=== PATIENT | male | born 1985 | race Caucasian/White ===

== ENCOUNTER 2018-08-15 13:17 | Inpatient (IN) | payer OTHER ==
[~2018-08-15] VITALS: Ht 185.4 cm; Wt 95.3 kg
--- NOTE | ~2018-08-15 | O ---
[facility] [place] [address] OPERATIVE REPORT Name: HAILY WHATLEY Room #: 463-P ADM IN M.R.#: [id number] Admission: 08/15/18 ������������������ Attend Phys: Toni Soliman Discharge: ������������������ Date of : 83 Report #: [id number] THIS REPORT FOR: //name// CC: ZBIGNIEW physician/PCP Toni Soliman DATE OF SERVICE: 08/23/2018 PREOPERATIVE DIAGNOSES: Gallstone pancreatitis, acute cholecystitis. POSTOPERATIVE DIAGNOSES: Gallstone pancreatitis, acute cholecystitis. OPERATION: Laparoscopic cholecystectomy with intraoperative cholangiogram. SURGEON: Carlitos Cunningham MD ANESTHESIA: General. ESTIMATED BLOOD LOSS: 100 mL. SPECIMEN: Gallbladder. DRAIN: 10-Malian round. INTRAOPERATIVE FINDINGS: Severe cholecystitis, normal cholangiogram. DESCRIPTION OF PROCEDURE: After informed consent was obtained, the patient was brought to the operating room and placed supine. SCDs were placed and working, preoperative antibiotics were administered, general anesthesia was induced. The abdomen was prepped and draped in the usual sterile fashion. A 10-mm incision was made above the umbilicus. Fascia was incised and a trocar was placed. Pneumoperitoneum was established. Three right upper quadrant 5-mm ports were placed. Gallbladder was grasped at the fundus and retracted cephalad. Infundibulum was grasped and retracted laterally. There was severe cholecystitis. I was able to dissect out the cystic artery and clip and ligate it. I dissected out the cystic duct. A ductotomy was made. Cholangiogram catheter was inserted. Cholangiogram was then performed. This demonstrated the cystic duct, common bile duct with a stent in it, common hepatic duct, bifurcation of the hepatics. There were no filling defects. Cholangiogram catheter was then removed. The cystic duct was clipped and ligated leaving a PDS Endoloop on the remaining duct. Gallbladder was then removed from the liver bed with electrocautery. It was placed into an Endopouch and removed. Fascia was then closed with a [id number] 0 Vicryl. Skin was closed with 4-0 Monocryl. Prior to closure, a 10-Malian drain was placed through the right upper quadrant incision into the gallbladder fossa. [facility] [address] [place] [address] OPERATIVE REPORT Name: HAILY WHATLEY Room #: 463-P [facility] IN M.R.#: [id number] Admission: 08/15/18 ������������������ Attend Phys: Toni Soliman Discharge: ������������������ Date of : 83 Report #: [id number] COMPLICATIONS: None. DISPOSITION: The patient was taken to recovery in satisfactory condition. ��������������������������������������������� ���������������������������������������� By: ��������������������������������������������� 0952 [address] Carlitos Cunningham MD /brennon
[2018-08-15 13:17] VITALS: BP 124/70
[2018-08-15 13:38] LABS: URINE BILIRUBIN NEGATIVE (Negative); URINE BLOOD NEGATIVE (Negative); URINE CLARITY CLEAR; URINE COLOR YELLOW; URINE GLUCOSE-RANDOM* NEGATIVE (Negative); URINE KETONES NEGATIVE (Negative); URINE LEUKOCYTES-REFLEX NEGATIVE (Negative); URINE NITRITE-REFLEX NEGATIVE (Negative); URINE PROTEIN (DIPSTICK) NEGATIVE (Negative); URINE SPECIFIC GRAVITY >= 1.030 (1.005-1.035); URINE UROBILINOGEN 0.2 E.U./dl (0.2-1.0)
[2018-08-15 14:19] LABS: HEMATOCRIT 41.3 % (42.0-52.0); HEMOGLOBIN 13.8 gm/dL (14.0-18.0); MCH 29.9 pg (26.0-34.0); MCHC 33.3 g/dL (28.0-37.0); MCV 89.8 fL (80.0-100.0); PLATELET COUNT 409 thou/uL (150-400); RDW 13.4 % (10.5-14.5); WBC 24.6 thou/uL (4.0-11.0)
[2018-08-15 14:30] LABS: CALCIUM 8.7 mg/dL (8.5-10.1); CREATININE 0.8 mg/dL (0.7-1.3); POTASSIUM 4.3 mmol/L (3.5-5.1)
[2018-08-15 14:34] LABS: ALBUMIN 2.6 g/dL (3.4-5.0); TOTAL BILIRUBIN 0.6 mg/dL (<0.1-1.0); TOTAL PROTEIN 7.8 g/dL (6.4-8.2)
[2018-08-15 14:45] LABS: ABSOLUTE NEUTROPHILS 22.4 thou/uL (1.4-8.2)
[2018-08-15 16:26] LABS: CHOLESTEROL 68 mg/dL (<200); HDL CHOLESTEROL 24 mg/dL (>40); LDL CHOLESTEROL 29 mg/dL (<100); SERUM ASSESSMENT Clear; TC:HDL 2.8 Ratio (Not establshd); TRIGLYCERIDE 76 mg/dL (<150); VLDL 15 mg/dL (<40)
[2018-08-15 16:52] VITALS: BP 119/63
[2018-08-15 17:11] VITALS: BP 120/70
--- NOTE | 2018-08-15 17:11 | NUR ---
REPORT CALLED FROM ER NURSE
[2018-08-15 17:42] VITALS: BP 118/62
[2018-08-15 19:30] VITALS: BP 112/62
[2018-08-16 04:11] VITALS: BP 122/56
--- NOTE | 2018-08-16 05:39 | NUR ---
Assumed care at 1845. Pt resting in bed. AOX4. VSS. Up at kusum. Skin in intact. Lungs clear. He had a slight elevation in temp 100.1 gave tylenol onetime. Pt also complained about abdmn pain gave him morphine twice today. Radiology called for missing coagulation panel. Informed CUSTOMER SERVICE AND SALES CONSULTANT who authorized the orders. Pt has been NPO since midnight for scheduled parecentesis. IV right AC w/LR @125. No identified needs at the moment. Will continue to monitor.
[2018-08-16 06:35] LABS: HEMATOCRIT 37.4 % (42.0-52.0); HEMOGLOBIN 12.3 gm/dL (14.0-18.0); MCH 29.8 pg (26.0-34.0); MCV 90.4 fL (80.0-100.0); RBC 4.14 mil/uL (4.50-6.00); RDW 13.3 % (10.5-14.5); WBC 19.4 thou/uL (4.0-11.0)
[2018-08-16 06:52] LABS: CALCIUM 8.6 mg/dL (8.5-10.1); CREATININE 0.9 mg/dL (0.7-1.3); POTASSIUM 4.9 mmol/L (3.5-5.1)
[2018-08-16 07:25] VITALS: BP 100/58
[2018-08-16 07:55] LABS: APTT 31.4 Seconds (24.5-32.8); INR 1.2; PROTIME 12.6 Seconds (9.3-11.4)
--- NOTE | 2018-08-16 08:15 | NUR ---
PT LYING IN BED SLEEPING, DENIES ANY PAIN AT THIS TIME. PT SKIN PALE. PT UP AD MAURICE AT THIS TIME. PT ON ROOM AIR.
--- NOTE | 2018-08-16 08:30 | NUR ---
PT LEAVING AT THIS TIME FOR US.
[2018-08-16 12:17] LABS: BF NUCLEATED CELLS 2394; BF RBC 2315
[2018-08-16 12:19] LABS: CLARITY CLOUDY; COLOR YELLOW; TOTAL VOLUME 55 mL
--- NOTE | 2018-08-16 12:38 | NUR ---
PT CAR REPAIRER APPRENTICE OF MORPHINE STARTED AT THIS TIME. PT STATED PAIN IS 6 ON 1-10 SCALE TO LOWER ABD. PT GETTING READY TO GET PICC LINE PLACED AT THIS TIME. PT SIG. OTHER IS AT BEDSIDE.
--- NOTE | 2018-08-16 12:38 | NUR ---
Recommend tpn at final rate 100ml/hr and add 250ml 20% lipids MWF.
--- NOTE | 2018-08-16 13:40 | NUR ---
GIVING MORPHINE 4MG IV X1 FOR PAIN CONTROL, PT PAIN LEVEL IS 6 ON 1-10 SCALE.
--- NOTE | 2018-08-16 13:43 | NUR ---
PICC LINE NURSE HERE FOR PLACEMENT.
[2018-08-16 14:09] LABS: BF MACROPHAGE 30; BF NEUTROPHILS 47; SOURCE ABDOMINAL
[2018-08-16 14:10] LABS: SOURCE ABDOMINAL
--- NOTE | 2018-08-16 15:24 | NUR ---
VASCULAR ACCESS TEAM ORDER VERIFIED AND CONSENT OBTAINED AT BEDSIDE. TIMEOUT COMPLETED AT BEDSIDE WITH RN. DL PICC PLACED TO RIGHT BASILIC VEIN WITH U.S GUIDANCE PER [facility] P&P. VEIN CANNULATED WITH ONE ATTEMPT. GUIDEWIRE ADVANCED EASILY. VEIN DILATED AND GUIDEWIRE REMOVED INTACT. DL PICC TRIMMED TO 38CM WITH 1CM EXTERNAL. BOTH LUMENS FLUSH AND DRAW EASILY. PLACEMENT VERIFIED BY CXR. LINE RELEASED FOR IMMEDIATE USE TO RN. PATIENT TOLERATED PROCEDURE WELL.
[2018-08-16 15:48] VITALS: BP 108/61
--- NOTE | 2018-08-16 16:58 | NUR ---
Cm attempted x 2 to visit with the pt. Pt out of room for testing several times today. [employer] referral in progress as the pt does not have health insurance. The pt is on TPN and had a picc line placed. Workup in progress for recurrent pancreatitis. Will reattempt to visit with the pt tomorrow.
[2018-08-16 23:24] VITALS: BP 98/49
--- NOTE | 2018-08-17 04:34 | NUR ---
ASSUMED CARE OF PT AT 1900HRS. PT AOX4 AND LETS NEEDS BE KNOWN. PT IS NPO. EMBEDDED SOFTWARE ARCHITECT CONTINUED AND TPN STARTED THIS SHIFT. PT WAS ABLE TO GET COMFORTABLE AND GET SOME SLEEP THIS SHIFT. NO OTHER S/S OF ACUTE DISTRESS. WILL CONTINUE TO MONITOR.
--- NOTE | 2018-08-17 05:16 | NUR ---
1.2 MICON FITER USED WITH TPN W/LIPIDS WHEN STARTED.
[2018-08-17 06:32] LABS: ABSOLUTE NEUTROPHILS 13.7 thou/uL (1.4-8.2); BASOPHILS 0.2 % (0.0-2.0); EOSINOPHILS 0.5 % (0.0-3.0); HEMATOCRIT 35.6 % (42.0-52.0); LYMPHOCYTES 9.4 % (24.0-44.0); MCH 30.2 pg (26.0-34.0); MCHC 33.6 g/dL (28.0-37.0); MCV 89.9 fL (80.0-100.0); MONOCYTES 6.3 % (1.0-8.0); PLATELET COUNT 388 thou/uL (150-400); POLYS 83.6 % (36.0-66.0); RBC 3.96 mil/uL (4.50-6.00); RDW 13.2 % (10.5-14.5); WBC 16.4 thou/uL (4.0-11.0)
[2018-08-17 06:49] LABS: ALBUMIN 2.1 g/dL (3.4-5.0); CALCIUM 7.9 mg/dL (8.5-10.1); CREATININE 0.8 mg/dL (0.7-1.3); PHOSPHORUS 3.4 mg/dL (2.5-4.9); POTASSIUM 4.1 mmol/L (3.5-5.1); TOTAL BILIRUBIN 0.5 mg/dL (<0.1-1.0); TOTAL PROTEIN 6.8 g/dL (6.4-8.2)
[2018-08-17 08:41] VITALS: BP 103/56
--- NOTE | 2018-08-17 13:22 | NUR ---
PT ADMITTED RELATED TO PANCREATITIS. CM REVIEWED CHART AND SPOKE WITH CARE TEAM. CM MET WITH PT AND HIS AT BEDSIDE THIS DAY. PT INDICATED THEY LIVE IN A CONDO WITH 3 STEPS TO ENTER AND A FULL FLIGHT OF STEPS INSIDE. PT INDICATED HE HAD BEEN INDEPENENT WITH GAIT AND ADLS HVAC LEAD. PT INDICATED THAT HE IS UNSERTAIN TO WHAT HIS NEEDS/PLANS WILL BE UPON DC AT THIS TIME. VALERIE MET [facility] PT AND COMPLETED AN APPLICATION FOR MEDICAID. PT WAS GIVEN A [employer] PACKET FOR FOLLOW UP CARES UPON DC. CM TO FOLLOW INDICATED WITH DC PLANNING.
--- NOTE | 2018-08-17 14:01 | NUR ---
TOWARDS POC PT A/O X4, VSS, AFEBRILE, PAIN MANAGED BY OPTICAL GLASS SAWYER PUMP. TOLERATING WELL. NO EPISODES ON NV. WILL CONTINUE TO MONITOR.
[2018-08-17 15:14] VITALS: BP 99/60
--- NOTE | 2018-08-17 16:06 | HC ---
[facility] [address] [address] CONSULTATION Name: HAILY WHATLEY Room #: 463-P ADM IN M.R.#: [id number] Admission: 08/15/18 ������������������ Attend Phys: Toni Soliman Discharge: ������������������ Date of : 83 Report #: [id number] THIS REPORT FOR: //name// CC: ZBIGNIEW physician/PCP Toni Soliman MD DATE OF SERVICE: 08/16/2018 GASTROENTEROLOGY CONSULTATION The patient of Dr. Soliman. CHIEF COMPLAINT: This is a very pleasant 33-year-old male whom we are asked to evaluate for possible etiologies of left upper quadrant pain and diffuse abdominal pain and loss of appetite. The patient has also been having intermittent bouts of chest pain that occur about every 3-4 weeks and may be related to his current situation. The patient is a 33-year-old male who was seen recently in [place], [place] at [facility] for what sounds like a biliary obstruction for choledocholithiasis and possibly pancreatitis. He underwent an ERCP with biliary stent placement after stone removal last week and then, returned to [place]. He said the day after he returned, he felt well, that was this past Tuesday, but then subsequently developed increasing abdominal pain and I believe he said that he vomited a couple of times as well in the next 3 days. He has had essentially no appetite for the past week. He has lost approximately 14 pounds in that interval going from 235 pounds to 221 pounds. His height is 6 feet 1 inch. He also describes dark green loose stools since his ERCP. He states he has known he has had a fatty liver and gallstones for the past year. The patient was seen and examined and his chart was reviewed. I personally reviewed his x-rays with the interventional radiologist who found him to have a biliary stent in place, a large amount of inflammation in the retroperitoneum with what is thought to be related to pancreatitis. There are multiple fluid collections thought to be related to his pancreatitis and there is a large pancreatic pseudocyst abutting the posterior wall of the stomach. The pseudocyst has an immature wall at this time. Portion of the mid pancreas has no obvious arterial perfusion on the scan and may be necrotic. There are multiple tiny gallstones in the gallbladder and there was reportedly a choledocholith that was removed during ERCP and stent placement. There is thickening of the second and third portions of the duodenal wall, probably reactive in nature to the pancreatitis. [facility] [address] [place] [address] CONSULTATION Name: HAILY WHATLEY Room #: 463-P ADM IN M.R.#: [id number] Admission: 08/15/18 ������������������ Attend Phys: Toni Soliman Discharge: ������������������ Date of : 83 Report #: [id number] There is some free fluid around the liver. There are bilateral small pleural effusions. There is moderate atelectasis. There is mild hepatic steatosis. There is nodularity throughout the peritoneum that could be inflammatory in nature related to the large amount of inflammation from the pancreatitis versus peritoneal carcinomatosis. There are enlarged lymph nodes in the central mesentery. There is a small umbilical hernia containing omental fat. There is a left varicocele. PAST MEDICAL HISTORY: Significant only for the chest pain that occurs intermittently about every 3-4 weeks. PAST SURGICAL HISTORY: None. ALLERGIES: No known drug allergies. MEDICATIONS: Prior to admission, no medications were taking prior to admission. SOCIAL HISTORY: He does not drink alcohol. He does not smoke cigarettes. FAMILY HISTORY: Negative for colon polyps, colon cancers, Crohn's disease, and ulcerative colitis. His mother has a history of kidney stones. REVIEW OF SYSTEMS: The patient denies any dysphagia to foods or liquids. He does have some recent pill dysphagia; however, he denies any odynophagia. He does have gastroesophageal reflux intermittently, but not severely. He has no history of a hiatal hernia or peptic ulcer disease. He has the above described 14 pounds weight loss. He has had no appetite for the last week. He denies nausea and vomiting, but he did have a couple of episodes of emesis, I believe Tuesday and Tuesday and perhaps Tuesday of this week. He denies any hematemesis, hematochezia, or melena. He has had some looser stools that are dark green recently. He says his pain involves the entire abdomen, but it started in the left upper quadrant. The morphine seems to be controlling it fairly well. He denies any history of jaundice or hepatitis. He has known he has had gallstones for the last year and he is also known that he has had a fatty liver for the past year. PHYSICAL EXAMINATION: GENERAL: Reveals a well-developed, well-nourished 33-year-old white male, in no apparent distress. At the time of my examination, he is awake, alert, oriented x4 and cooperative and very pleasant to converse with. HEENT: He is normocephalic, atraumatic, and anicteric. [facility] [address] [place] [address] CONSULTATION Name: HAILY WHATLEY Room #: 463-P ADM IN M.R.#: [id number] Admission: 08/15/18 ������������������ Attend Phys: Toni Soliman Discharge: ������������������ Date of : 83 Report #: [id number] HEART: Heart rate and rhythm are regular with a normal S1 and S2. No S3, S4, or murmur are auscultated. LUNGS: Clear bilaterally. ABDOMEN: Soft, mildly distended. There are bowel sounds that are present in the lower quadrants bilaterally. There is no palpable organomegaly or mass. There is diffuse tenderness to palpation. There is no rebound or guarding. There is fullness in the epigastrium that I believe is probably the pseudocyst pushing up on his stomach. EXTREMITIES: Warm and dry. NEUROLOGIC: He appears grossly intact without lateralizing signs. SIGNIFICANT LABORATORY DATA: Shows ascites analysis that describes a total of 55 mL that is yellow and cloudy in color with 2315 RBCs, 2394 nucleated white cells of which 47% are neutrophils, 23% are lymphocytes, and 30% are macrophages. The chemistries are pending from this fluid study. Electrolytes are within normal limits at the time of admission. Glucose is 123, AST was 39, lipase was 115, ALT is 40, alkaline phosphatase 116, his total bilirubin was 0.6. Lactic acid was 1.5. Triglycerides are 76, but he has not had any for many days. His INR is 1.2. White blood cell count on admission was 24.6, hemoglobin 12.3, hematocrit 41.3, indices are all normal including the RDW, his platelet count was 409,000. He had 91 segmented neutrophils, 4 lymphocytes, 5 monocytes, and 22 absolute neutrophils. Urinalysis was negative. IMPRESSION: 1. Acute pancreatitis with developing pancreatic pseudocyst, probably secondary to gallstones. The patient underwent ERCP with stone extraction and stent placement in [facility] last week and there was a suggestion that the stent may be blocking pancreatic duct drainage on a CT done here in [place]. 2. White blood cell count is 24,000 on admission, down to 19.4 later in the day. 3. Intermittent bouts of chest pain every 3-4 weeks prior to this event. 4. Occasional gastroesophageal reflux. 5. Steatosis of the liver. RECOMMENDATIONS: As follows: 1. I agree with the n.p.o. status except for water and hyperalimentation. I do not think that he is going to be able to take enough food for adequate healing and I think that eating is actually can aggravate this pancreatitis, so he will need to be on hyperalimentation probably for several weeks. 2. It takes about 6 weeks for the pseudocyst wall to mature and at that point, I would recommend endoscopic cyst gastrostomy for drainage of the large retrogastric pseudocyst. This would need to be done at a tertiary center to [facility] or he may prefer to return to [facility] in [place] for this. 3. I would recommend close CT followup of his abdomen on a weekly basis for now. [facility] [address] [place] [address] CONSULTATION Name: HAILY WHATLEY Room #: 463-P ADM IN M.R.#: [id number] Admission: 08/15/18 ������������������ Attend Phys: Toni Soliman Discharge: ������������������ Date of : 83 Report #: [id number] 4. Adequate pain control. 5. Rest, DVT prophylaxis, incentive spirometry to prevent pneumonia. 6. If fever, chills, or increasing abdominal pain develops, a stat CT of abdomen and pelvis should be obtained to evaluate for the development of an infected pseudocyst and surgical reevaluation should be obtained along with Infectious Disease Consultation. 7. Obtain records from [facility]. Thank you very much once again for allowing me to participate in his care. ��������������������������������������������� <ELECTRONICALLY SIGNED> ���������������������������������������� By: Janet Wing DO ��������������������������������������������� 08/17/18 1606 2056 0310 Janet Wing DO /nt
[2018-08-17 20:30] VITALS: BP 112/63
[2018-08-18 07:06] LABS: CALCIUM 8.7 mg/dL (8.5-10.1); CREATININE 0.7 mg/dL (0.7-1.3); MAGNESIUM 2.5 mg/dL (1.8-2.4); PHOSPHORUS 3.8 mg/dL (2.5-4.9); POTASSIUM 4.1 mmol/L (3.5-5.1)
--- NOTE | 2018-08-18 08:01 | NUR ---
Assumed care at 1845. Pt resting in bed. AOX4. VSS. On 3L NC. Changed the [facility] pump to have a 1mg balas rate per CONTENT CREATION MANAGER orders. Pt is still NPO. Up at kusum. No identified needs at the moment. Will continue to monitor.
[2018-08-18 08:25] VITALS: BP 97/56
--- NOTE | 2018-08-18 10:15 | NUR ---
TOWARDS POC PT A/O X4, VSS, AFEBRILE, PAIN MANAGED BY BROACH TROUBLE SHOOTER PUMP, CAPONOMETER IN PLACE. PT ABD IS STILL DISTENDED. PT REMAINED UP AD MAURICE IN THE ROOM. NO CONCERNS VOICED. WILL CONTINUE TO MONITOR.
--- NOTE | 2018-08-18 11:08 | NUR ---
ORDERS RECEIVED FOR EVAL AND TREAT. NOTE Pt IS UP AD MAURICE PER NURSING. SPOKE WITH Pt WHO STATES HE IS GETTING UP ON HIS OWN AND DOES NOT FEEL HE NEEDS P.T. WALKING WITH HIM. AGREES TO CONTINUE GETTING UP ON HIS OWN AND WALKING. Pt IS DECLINING FORMAL P.T. EVAL
--- NOTE | 2018-08-18 13:08 | PATH ---
[facility] [address] [place] [address] PATHOLOGY RPT PROCEDURE Name: HAILY WHATLEY Room #: 463-P ADM IN M.R.#: [id number] ������������������ Admission: 08/15/18 ������������������ Date of : 83 Discharge: Report #: [id number] Path Case #: [id number] Note [facility] Accession Number: [id number] TESTS RESULT FLAG UNITS REF RANGE LAB Clinician Provided Cytology Information No. of containers..01 Other (Miscellaneous) Source: 01 ABDOMINAL FLUID DIAGNOSIS: 02 ABDOMINAL FLUID NEGATIVE FOR MALIGNANT CELLS. REACTIVE MESOTHELIAL CELLS ARE PRESENT. Pathologist ICD10: 02 K86.1 Signed out by: Madeline Hinkle MD, Pathologist NPI- [id number] Performed by: Francisco Pathak, [facility] ([facility]) Gross description: 01 10ML, DARK YELLOW, CLOUDY /LCS FLAG LEGEND: L-Low Normal,H-High Normal,LL-Alert Low,HH-Alert High <-Panic Low,>-Panic High,A-Abnormal,AA-Critical Abnormal Performed at: [address] [place] [address] Freedom Cole MD, [address] [address] Madeline Hinkle MD, Specimen Comment: A courtesy copy of this report has been sent to Specimen Comment: [phone]. Specimen Comment: Report sent to Specimen Comment: A duplicate report has been generated due to demographic updates. Performed at: [address], [place], [place] [id number] MD Freedom Cole MD Phone: [phone]
[2018-08-18 17:10] VITALS: BP 100/61
[2018-08-18 19:15] VITALS: BP 106/64
[2018-08-19 04:34] VITALS: BP 98/52
--- NOTE | 2018-08-19 05:55 | NUR ---
Pt. rested quietly at intervals during the night when checked on during frequent rounds. Morphine chlorobutadiene scrubber operator providing pain relief. He offers no c/o nausea. Up ad kusum in his room.
[2018-08-19 06:32] LABS: HEMATOCRIT 34.9 % (42.0-52.0); HEMOGLOBIN 11.5 gm/dL (14.0-18.0); MCH 29.7 pg (26.0-34.0); MCHC 33.1 g/dL (28.0-37.0); MCV 89.6 fL (80.0-100.0); RBC 3.89 mil/uL (4.50-6.00); RDW 12.9 % (10.5-14.5); WBC 12.2 thou/uL (4.0-11.0)
[2018-08-19 06:54] LABS: ALBUMIN 2.1 g/dL (3.4-5.0); CALCIUM 8.2 mg/dL (8.5-10.1); CREATININE 0.7 mg/dL (0.7-1.3); PHOSPHORUS 3.9 mg/dL (2.5-4.9); POTASSIUM 4.7 mmol/L (3.5-5.1); TOTAL BILIRUBIN 0.3 mg/dL (<0.1-1.0); TOTAL PROTEIN 6.5 g/dL (6.4-8.2)
[2018-08-19 08:45] VITALS: BP 98/51
[2018-08-19 14:08] LABS: BODY FLUID AMYLASE 28 U/L (()); BODY FLUID GLUCOSE 98 mg/dL (()); BODY FLUID LDH 422 IU/L (()); BODY FLUID PROTEIN 4.2 g/dL (())
--- NOTE | 2018-08-19 14:51 | NUR ---
ASSUMED CARE O700. ALERT X4, ABLE TO MAKE NEEDS KNOWN, PAIN MANAGED WITH PILL COATER PUMP. INDEPENDENT WITH ADL'S. DIET ADVANCED TO FULL LIQUID DIET AND TOLERATING AT THIS TIME. BM TODAY AND STOOL SAMPLE SENT TO LAB. CALL LIGHT IN REACH. CONTINUE TO MONITOR.
[2018-08-19 15:31] VITALS: BP 97/50
[2018-08-19 19:07] VITALS: BP 105/47
[2018-08-20 04:20] VITALS: BP 102/59
--- NOTE | 2018-08-20 05:06 | NUR ---
Pt. rested quietly at intervals during the night when checked on during frequent rounds. No c/o nausea. Morphine leaf coverer providing some pain relief. Up ad kusum in his room.
[2018-08-20 07:13] LABS: ALBUMIN 2.1 g/dL (3.4-5.0); CALCIUM 8.1 mg/dL (8.5-10.1); CREATININE 0.8 mg/dL (0.7-1.3); MAGNESIUM 1.9 mg/dL (1.8-2.4); PHOSPHORUS 3.9 mg/dL (2.5-4.9); POTASSIUM 4.4 mmol/L (3.5-5.1); TOTAL BILIRUBIN 0.3 mg/dL (<0.1-1.0); TOTAL PROTEIN 6.7 g/dL (6.4-8.2)
--- NOTE | 2018-08-20 12:41 | NUR ---
ASSUMED CARE 0700. ALLER X4, PAIN MANAGED WITH MEDICATIONS, TOLERATING FULL LIQUID DIET. UP AB MAURICE, DC OF LOCOMOTIVE SWITCH OPERATOR AT 1030 TODAY. CALLS FOR ASSISTANCE. FAMILY BEDSIDE. CALL LIGHT IN REACH.
[2018-08-20 15:00] VITALS: BP 123/66
--- NOTE | 2018-08-21 00:59 | NUR ---
ASSUMED CARE OF PT AT 1900HRS. PT IS AOX4 AND LETS NEEDS BE KNOWN. PT REFUSED EVENING VITALS. PAIN IS MANAGED WITH PO PAIN MEDS. TPN WAS DCed. NO OTHER S/S OF ACUTE DISTRESS. WILL CONTINUE TO MONITOR.
[2018-08-21 03:07] VITALS: BP 91/42
[2018-08-21 07:45] VITALS: BP 90/57
--- NOTE | 2018-08-21 14:47 | NUR ---
CARE TEAM INDICATED THAT THEY ANTICPATED THAT PT MAY BE MEDICALLY STABLE TO DC HOME TOMRROW. CM PROVIDED [facility] PACKET FOR USE FOR FOLLOW UP CARES. CM TO FOLLOW INDICATED WITH DC PLANNING.
[2018-08-21 18:32] VITALS: BP 109/65
--- NOTE | 2018-08-21 19:53 | NUR ---
ASSUMED CARE 0700. PAIN MANAGED WITH MEDICATIONS, TOLERATING FULL LIQUID DIET. UP AB MAURICE, CONTINUE ON FLUIDS. SLOW TO PROGRESS
[2018-08-21 19:58] VITALS: BP 101/54
--- NOTE | 2018-08-22 04:04 | NUR ---
ASSUMED CARE OF PT AT 1900HRS. PT IS AOX4 AND LETS NEEDS BE KNOWN. PT REPORTED SOME PAIN AND WAS TREATED WITH PRN PAIN MEDS. PT WAS ABLE TO GET COMFORTABLE AND GET SOME SLEEP THIS SHIFT. NO OTHER S/S OF ACUTE DISTRESS. WILL CONTINUE TO MONITOR.
[2018-08-22 04:45] LABS: ALBUMIN 2.2 g/dL (3.4-5.0); CALCIUM 8.6 mg/dL (8.5-10.1); CREATININE 0.8 mg/dL (0.7-1.3); TOTAL BILIRUBIN 0.3 mg/dL (<0.1-1.0)
[2018-08-22 08:14] VITALS: BP 94/45
--- NOTE | 2018-08-22 15:33 | NUR ---
CARE TEAM INDICATED THAT PT IS TO HAVE LAP ARIELLE TOMORROW AND MAY BE MEDICALLY STABLE TO DC AFTER. CM TO FOLLOW INDICATED WITH DC PLANNING.
[2018-08-22 16:20] VITALS: BP 116/64
--- NOTE | 2018-08-22 18:37 | NUR ---
ASSUMED CARE 0700, CT COMPLETED TODAY LIKEY TO HAVE GALLBLADDER REMOVED IN THE MORNING. PLACE ON NPO STATUS FOR SURGERY ON Tuesday08/23/18. PAIN MANAGED WITH MEDICATIONS
[2018-08-22 20:47] VITALS: BP 112/61
--- NOTE | 2018-08-23 02:56 | NUR ---
PAIN CONTROLLED THIS SHIFT. PATIENT HAS BEEN NPO SINCE MIDNIGHT. PATIENT IS UP AT MAURICE.PATIENT HAD A SHOWER AND AMBULATES TO THE BATHROOM WITH STEADY GAITS. PATIENT IN BED ASLEEP AT THIS TIME BREATHING REGULAR AND UNLABOURED.
[2018-08-23 04:16] VITALS: BP 106/57
[2018-08-23 05:32] LABS: ALBUMIN 2.1 g/dL (3.4-5.0); CALCIUM 8.6 mg/dL (8.5-10.1); CREATININE 0.8 mg/dL (0.7-1.3); TOTAL BILIRUBIN 0.3 mg/dL (<0.1-1.0); TOTAL PROTEIN 6.8 g/dL (6.4-8.2)
[2018-08-23 15:54] VITALS: BP 121/67
--- NOTE | 2018-08-23 18:05 | NUR ---
PT STABLE THROUGHOUT SHIFT. PT HAD PROCEDURE WHICH HE TOLERATED WELL. PT HAD SIGNIFCATN DRAINAGE IN TYLER DRAIN (400 MLS), HOWEVER RATE HAS STEADILY SLOWED. PT C/O UNCONTROLLED PAIN, ORDERED HYDROMORPHINE HOWEVER PT STATES "IT IS NOT ENOUGH", CALL PLACED TO HOSPITALIST. WILL CONTINUE TO MONITOR.
[2018-08-23 19:45] VITALS: BP 112/61
[2018-08-24 03:02] VITALS: BP 148/94
--- NOTE | 2018-08-24 07:07 | NUR ---
progress pt rating pain a 2 to 7 taking hydromorphone sparingly up ad kusum voiding qs bs hypoactive and pt denies flatus but has been having stools during day none noted last night. dietary intake is poor remains of 2 trays barely touched were in the room pt stated he has no appetite thats why hes not eating well encourage ambulation, increase intake moitor output, arron drain draining large amount of blood tinged fluids drsg changed d/y drainage site intact w/o s/s of infection. continue to monitor
[2018-08-24 07:55] VITALS: BP 113/57
[2018-08-24 10:15] LABS: HEMATOCRIT 31.3 % (42.0-52.0); HEMOGLOBIN 10.6 gm/dL (14.0-18.0); MCH 29.9 pg (26.0-34.0); MCHC 33.8 g/dL (28.0-37.0); MCV 88.4 fL (80.0-100.0); RBC 3.54 mil/uL (4.50-6.00); RDW 13.2 % (10.5-14.5); WBC 18.9 thou/uL (4.0-11.0)
[2018-08-24 10:22] LABS: CALCIUM 8.9 mg/dL (8.5-10.1); CREATININE 0.9 mg/dL (0.7-1.3); POTASSIUM 4.3 mmol/L (3.5-5.1)
--- NOTE | 2018-08-24 15:46 | NUR ---
PT VITAL SIGNS STABLE THROUGHOUT SHIFT. PT CONTIUES TO C/O PAIN, TREATED WITH MEDICATION WHICH OFFERED PARTIAL RELIEF AND ALLOWED PT TO SLEEP. DRESSING IS C/D/I. PT RESTING, ANTICIPATE DC TOMORROW.
--- NOTE | 2018-08-24 15:46 | NUR ---
PT HAD ERIKA GUZMÁN YESTERDAY CARE TEAM INDICATED THAT DC IS ANTICPATED FOR TOMORROW PT STILL HAVING SIGNIFICANT PAIN ISSUES. CM TO FOLLOW INDICATED WITH DC PLANNING.
--- NOTE | 2018-08-24 16:06 | PATH ---
[facility] [address] [place] [address] PATHOLOGY RPT PROCEDURE Name: HAILY WHATLEY Room #: 463-P [facility] IN M.R.#: [id number] ������������������ Admission: 08/15/18 ������������������ Date of : 83 Discharge: Report #: [id number] Path Case #: [id number] [facility] Accession Number: [id number] . 01 Material submitted: . gallbladder - GALLBLADDER . 01 Clinical history: . Cholecystitis . 02 Diagnosis: Gallbladder, cholecystectomy: - Mild chronic cholecystitis. - Cholelithiasis. - Incidental reactive lymph node. (IUV:daysi; 08/24/2018) QMS/08/24/2018 . 02 Electronically signed: . Madeline Hinkle MD, Pathologist NPI- [id number] . 01 Gross description: . The specimen is received in formalin labeled "Belts, Haily, gallbladder" and consists of an intact, pink-liu gallbladder measuring 7.6 cm in length and up to 2.5 cm in diameter. The margin is inked black. Opening reveals a lumen filled with viscous bile and multiple black gravel-like and easily crushed calculi measuring up to 0.3 cm. The mucosa is pink-hart and trabeculated with scattered yellow flecks and an average wall thickness of 0.1 cm. No masses are identified. Adjacent the gallbladder neck is a lymph node candidate measuring 0.5 x 0.4 cm. Sales Training Coordinator sections are submitted in A1. (SDY; 08/23/2018) SYU/SYU . 02 Pathologist provided ICD-10: K80.10 . 02 CPT . [id number] Specimen Comment: A courtesy copy of this report has been sent to Specimen Comment: [phone], . Specimen Comment: Report sent to / DR GRIFFITHS Performed at: [address] [id number] MD Freedom Cole MD Phone: [phone] [address] [address] PATHOLOGY RPT PROCEDURE Name: HAILY WHATLEY Room #: 463-P ADM IN M.R.#: [id number] ������������������ Admission: 08/15/18 ������������������ Date of : 83 Discharge: Report #: [id number] Path Case #: [id number] Performed at: [address] [id number] MD Madeline Hinkle MD Phone: [phone]
[2018-08-24 16:23] VITALS: BP 103/57
[2018-08-24 19:42] VITALS: BP 103/55
--- NOTE | 2018-08-25 03:56 | NUR ---
Pt. rested quietly at intervals during the night when checked on during frequent rounds. He did c/o abdominal pain and was offered oral pain meds, but refused. Iv pain meds given (see emar) with some relief noted. Lapsite dressings to his abdomen are intact.
[2018-08-25 04:44] VITALS: BP 108/58
[2018-08-25 05:43] LABS: HEMATOCRIT 28.8 % (42.0-52.0); MCH 30.8 pg (26.0-34.0); MCHC 34.6 g/dL (28.0-37.0); MCV 89.1 fL (80.0-100.0); RBC 3.24 mil/uL (4.50-6.00); WBC 10.4 thou/uL (4.0-11.0)
[2018-08-25 05:54] LABS: CALCIUM 8.5 mg/dL (8.5-10.1); CREATININE 0.9 mg/dL (0.7-1.3); POTASSIUM 3.7 mmol/L (3.5-5.1)
[2018-08-25 08:08] VITALS: BP 102/58
[2018-08-25] MEDS ORDERED: NORCO 7.5-3251 EACH PO (13:10)
[2018-08-25] MEDS ORDERED: PROTONIX40 M1 PO (13:10)
[2018-08-25 13:28] VITALS: BP 102/58
--- NOTE | 2018-08-25 15:08 | NUR ---
PT STABLE THROUGHOUT SHIFT. PT C/O PAIN THROUGHOUT SHIFT- INSISTED ON IV MEDICATION RATHER THAN ORAL. EXPLAINED TO PT THAT HE WOULD NOT BE ABLE TO CONTINUE IV AFTER DISCHARGE. PTCC LINE REMOVED. PT DISCHARGED, GIVEN DC INSTRUCTIONS, RX'S, RX EDUCATION. PT LEFT UNIT VIA WHEELCHAIR TO PRIVATE VEHICLE.
== END 2018-08-25 15:12 | disposition home or self-care (01) | DRG 417 ==
LOC: ER 13:17 → EROBS 15:24 → 4W 15:24 → ENTRNSPT 08-25 14:56 → EDTRNSPTSTS 08-25 14:58 → 4W 08-25 15:12
PROVIDERS: Emergency Medicine; Hospitalist; Nurse Practitioner Acute Care; ADMIT Hospitalist
PROC: 0W9G3ZZ Drainage of Peritoneal Cavity, Percutaneous Approach (ICD-10-PCS; principal; 2018-08-16)
PROC: B54MZZA Ultrasonography of Right Upper Extremity Veins, Guidance (ICD-10-PCS; principal; 2018-08-16)
PROC: 05HY33Z Insertion of Infusion Device into Upper Vein, Percutaneous Approach (ICD-10-PCS; principal; 2018-08-16)
PROC: BF141ZZ Fluoroscopy of Gallbladder, Bile Ducts and Pancreatic Ducts using Low Osmolar Contrast (ICD-10-PCS; 2018-08-23)
PROC: 0FT44ZZ Resection of Gallbladder, Percutaneous Endoscopic Approach (ICD-10-PCS; 2018-08-23)
DX: K80.62 Calculus of gallbladder and bile duct with acute cholecystitis without obstruction (principal); K85.11 Biliary acute pancreatitis with uninfected necrosis; E43 Unspecified severe protein-calorie malnutrition; K86.3 Pseudocyst of pancreas; R18.8 Other ascites; K21.9 Gastro-esophageal reflux disease without esophagitis; K76.0 Fatty (change of) liver, not elsewhere classified; Z68.27 Body mass index [BMI] 27.0-27.9, adult
CPT/HCPCS: 10040; 10045; 27000; 50010; 50101; 50331; 50411; 50555; 50558; 50819; 50900; 51297; 51489; 52265; 52266; 52287; 53307; 53312; 53314; 54118; 55245; 55317; 56462; 56525; 56526; 56527; 62110; 62900; 70005